=== PATIENT | female | born 1970 | race Native Hawaiian/Other Pacific Islander ===

== ENCOUNTER 2016-06-30 20:39 | Emergency (ER) | payer BC ==
[~2016-06-30] VITALS: Ht 170.2 cm; Wt 96.2 kg
[~2016-06-30 20:39] MED LIST: MOTRIN IB200 MG PO
[2016-06-30] MEDS ORDERED: LISITAB PO (21:09)
[2016-06-30 21:33] LABS: PLATELET COUNT 358 K/uL (152-353)
[2016-06-30 21:46] LABS: POTASSIUM 3.2 mmol/L (3.6-5.2); SODIUM 135 mmol/L (136-145)
[2016-06-30 22:36] VITALS: BP 148/85; TEMP 98.9
[2016-06-30 22:36] LABS: PARTIAL THROMBOPLASTIN TIME 23.2 SECONDS (24.5-33.6)
== END 2016-06-30 22:37 | disposition home or self-care (01) ==
LOC: ED 20:39
DX: R07.89 Other chest pain (principal)
CPT/HCPCS: 36415; 80053; 82550; 84484; 85027; 85610; 85730; 86318; 99283

== ENCOUNTER 2018-01-20 12:00 | Outpatient (CLI) | payer BC, OTHER ==
[~2018-01-20 12:00] MED LIST changes: +LISITAB PO
== END 2018-01-20 12:02 | disposition short-term general hospital (02) ==
LOC: AMB 12:00
DX: M54.2 Cervicalgia (principal); V49.9XXA Car occupant (driver) (passenger) injured in unspecified traffic accident, initial encounter; Y93.89 Activity, other specified; Y92.89 Other specified places as the place of occurrence of the external cause
CPT/HCPCS: A0425; A0427

== ENCOUNTER 2018-01-20 12:08 | Emergency (ER) | payer BC, OTHER ==
[~2018-01-20] VITALS: Ht 170.2 cm; Wt 99.8 kg
[2018-01-20 17:39] VITALS: BP 147/91; TEMP 98
== END 2018-01-20 17:39 | disposition home or self-care (01) ==
LOC: ED 12:08
DX: S00.93XA Contusion of unspecified part of head, initial encounter (principal); S16.1XXA Strain of muscle, fascia and tendon at neck level, initial encounter; S50.12XA Contusion of left forearm, initial encounter; V49.40XA Driver injured in collision with unspecified motor vehicles in traffic accident, initial encounter
CPT/HCPCS: 96372; 99283; J1885

== ENCOUNTER 2018-01-22 12:10 | Outpatient (CLI) | payer BC | END 2018-01-22 19:59 | disposition home or self-care (01) | LOC: RAD 12:10 | DX: M25.532 Pain in left wrist (principal) ==

== ENCOUNTER 2020-03-04 13:52 | Outpatient (CLI) | payer OTHER | END 2020-03-04 19:52 | disposition home or self-care (01) | LOC: MAMMO 13:52 | PROVIDERS: ATTEND Nurse Practitioner | DX: Z12.31 Encounter for screening mammogram for malignant neoplasm of breast (principal) ==

== ENCOUNTER 2020-03-24 12:54 | Outpatient (CLI) | payer OTHER | END 2020-03-24 22:30 | disposition home or self-care (01) | LOC: MAMMO 12:54 | PROVIDERS: ATTEND Nurse Practitioner | DX: R92.8 Other abnormal and inconclusive findings on diagnostic imaging of breast (principal) ==

== ENCOUNTER 2020-04-27 17:25 | Emergency (ER) | payer OTHER ==
[~2020-04-27] VITALS: Ht 170.2 cm; Wt 99.8 kg
[2020-04-27 17:57] LABS: PLATELET COUNT 342 K/uL (152-353)
[2020-04-27 18:22] LABS: POTASSIUM 3.7 mmol/L (3.6-5.2)
[2020-04-27 20:30] VITALS: BP 136/83; TEMP 97.6
== END 2020-04-27 20:30 | disposition home or self-care (01) ==
LOC: ED 17:25
PROVIDERS: Emergency Medicine Emergency Medical Services
DX: R42 Dizziness and giddiness (principal)
CPT/HCPCS: 36415; 80053; 83690; 85027; 96360; 96374; 96375; 99284; J1200; J2270; J2550

== ENCOUNTER 2022-02-25 19:38 | Emergency (ER) | payer OTHER ==
[~2022-02-25] VITALS: Ht 170.2 cm; Wt 99.8 kg
[2022-02-25 23:50] VITALS: BP 138/85; TEMP 97.1
== END 2022-02-25 23:55 | disposition home or self-care (01) ==
LOC: ED 19:38
DX: S16.1XXA Strain of muscle, fascia and tendon at neck level, initial encounter (principal); S80.211A Abrasion, right knee, initial encounter; M25.461 Effusion, right knee; V43.52XA Car driver injured in collision with other type car in traffic accident, initial encounter; Y92.89 Other specified places as the place of occurrence of the external cause
CPT/HCPCS: 96372; 99283; J1885